=== PATIENT | female | born 1995 ===

== ENCOUNTER 2017-07-21 18:49 | Emergency (ER) | payer OTHER ==
[2017-07-21 19:09] VITALS: BP 127/72
--- NOTE | 2017-07-21 19:45 | UC ---
Respiratory Complaint HPI - HPI Summary HPI Summary: cough and congestion for about 5 days. No known fever. No pain. Cough is mainly dry. Cough is worse at night. ST is worse in the last few days. - History of Current Complaint Chief Complaint: UCRespiratory Stated Complaint: SORE THROAT/DIZZINESS Time Seen by Provider: 07/21/17 19:38 Hx Obtained From: Patient Hx Last Menstrual Period: 07/12/17 Onset/Duration: Gradual Onset, Lasting Days Severity Initially: Moderate Severity Currently: Moderate Character: Cough: Nonproductive Aggravating Factors: Deep Breaths, Recumbent Position Alleviating Factors: Upright Position, Spontaneous Resolution Associated Signs And Symptoms: Positive: URI, Nasal Congestion - Allergies/Home Medications Allergies/Adverse Reactions: Allergies Allergy/AdvReac Type Severity Reaction Status Date / Time No Known Allergies Allergy Verified 07/21/17 19:03 Home Medications: Home Medications NK [No Home Medications Reported] 07/21/17 [History Confirmed 07/21/17] PMH/Surg Hx/FS Hx/Imm Hx Previously Healthy: Yes - Surgical History Surgical History: None - Family History Known Family History: Positive: Other - No known respiratory disease. - Social History Occupation: Employed Part-time Alcohol Use: Occasionally Substance Use Type: None Smoking Status (MU): Never Smoked Tobacco - Immunization History Most Recent Influenza Vaccination: NO Review of Systems ENT: Sore Throat Respiratory: Cough All Other Systems Reviewed And Are Negative: Yes Physical Exam Triage Information Reviewed: Yes Appearance: Well-Appearing, No Pain Distress, Well-Nourished Vital Signs: Initial Vital Signs Temp 98.3 F 07/21/17 19:03 Pulse 91 07/21/17 19:03 Resp 16 07/21/17 19:03 BP 127/72 07/21/17 19:03 Pulse Ox 100 07/21/17 19:03 Vital Signs Reviewed: Yes Eyes: Positive: Conjunctiva Clear ENT: Positive: Pharynx normal, Pharyngeal erythema, TMs normal. Negative: Nasal congestion Neck: Positive: Supple, Nontender, No Lymphadenopathy Respiratory: Positive: Normal breath sounds, No respiratory distress, No accessory muscle use. Negative: Respiratory distress, Decreased breath sounds, Accessory muscle use Cardiovascular: Positive: RRR, No Murmur, Pulses Normal Abdomen Description: Negative: Distended, Guarding Musculoskeletal: Positive: Strength Intact, ROM Intact, No Edema Neurological: Positive: Alert, Muscle Tone Normal. Negative: Fatigued Psychological: Positive: Age Appropriate Behavior Skin: Negative: rashes UC Diagnostic Evaluation - Laboratory O2 Sat by Pulse Oximetry: 100 Respiratory Course/Dx - Differential Dx/Diagnosis Provider Diagnoses: URI Discharge - Discharge Plan Condition: Good Disposition: HOME Patient Education Materials: Upper Respiratory Infection (ED) Additional Instructions: Return here for any wrosening. Robitussin DM as needed for the cough.
== END 2017-07-21 19:48 | disposition home or self-care (01) ==
LOC: UCCORT 18:49
DX: J06.9 Acute upper respiratory infection, unspecified (principal)
CPT/HCPCS: 87651; 99201; G0463